=== PATIENT | female | born 1965 | race Caucasian/White ===

== ENCOUNTER → 2018-11-04 | Outpatient (CLI) | payer OTHER, MEDICAID ==
--- NOTE | ~2018-11-04 | HM ---
[place], [place] HOLTER MONITOR REPORT NAME: SOPHIA GREENE UNIT #: [id number] ROOM: DOCTOR: JOSE C HUNTER MD BIRTHDATE: [birth year] DOS: 11/12/2018 HOLTER MONITOR The patient remained in sinus rhythm throughout the entire period. Minimum heart rate is 52, maximum heart rate is 132, average of 80 beats per minute. Baseline cardiogram is sinus rhythm. The patient had an episode of sinus tachycardia, isolated PVCs, no bradycardic episodes, no pauses. FINAL IMPRESSION: Sinus rhythm with an episode of sinus tachycardia. No significant supraventricular dysrhythmia. Hemodynamically stable. No significant pauses. No significant ventricular dysrhythmia. JOSE C HUNTER MD CM:HOLTER:HOLTER MONITOR REPORT [id number] JOSE C HUNTER MD
== END | disposition home or self-care (01) ==
LOC: CARD 08:52
DX: R00.0 Tachycardia, unspecified (principal)

== ENCOUNTER → 2018-12-11 | Outpatient (CLI) | payer OTHER, MEDICAID | END | disposition home or self-care (01) | LOC: CT 12-10 14:00 | DX: K76.0 Fatty (change of) liver, not elsewhere classified (principal); R10.11 Right upper quadrant pain; Z90.710 Acquired absence of both cervix and uterus ==

== ENCOUNTER → 2018-12-19 | Outpatient (CLI) | payer OTHER, MEDICAID | END | disposition home or self-care (01) | LOC: NM 06:46 | DX: R10.84 Generalized abdominal pain (principal); K59.00 Constipation, unspecified ==

== ENCOUNTER → 2019-03-03 | Outpatient (CLI) | payer OTHER, MEDICAID ==
[2019-03-03 09:48] LABS: BUN 8 mg/dl (7-24); CREATININE 0.95 mg/dL (0.55-1.02)
== END | disposition home or self-care (01) ==
LOC: LAB 09:10
PROVIDERS: Family Medicine
DX: K76.89 Other specified diseases of liver (principal); R10.84 Generalized abdominal pain; R10.2 Pelvic and perineal pain

== ENCOUNTER → 2019-03-05 | Outpatient (CLI) | payer OTHER, MEDICAID ==
[~2019-03-05] MED LIST: BACLOFEN5 MG PO; DUEXIS 800-26.1 EACH PO; LEVOTHYROXINE175 MCG PO; LYRICA150 M1 PO; LYRICA75 M1 PO; NUCYNTA50 MG PO; OMEPRAZOLE40 MG PO
== END | disposition home or self-care (01) ==
LOC: CT 01:04
DX: K76.89 Other specified diseases of liver (principal); R10.84 Generalized abdominal pain; R10.2 Pelvic and perineal pain

== ENCOUNTER → 2019-03-21 | Day surgery (SDC) | payer OTHER, MEDICAID ==
[~2019-03-21] VITALS: Ht 167.6 cm; Wt 90.7 kg
[2019-03-21 07:27] VITALS: BP 133/73
[2019-03-21 09:05] VITALS: BP 108/61
[2019-03-21 09:18] VITALS: BP 114/76
[2019-03-21 09:30] VITALS: BP 124/76
== END | disposition home or self-care (01) ==
LOC: SDC 03-17 08:00
DX: K62.5 Hemorrhage of anus and rectum (principal); K21.0 Gastro-esophageal reflux disease with esophagitis; K44.9 Diaphragmatic hernia without obstruction or gangrene; K64.9 Unspecified hemorrhoids; Z98.890 Other specified postprocedural states; Z79.899 Other long term (current) drug therapy; Z88.8 Allergy status to other drugs, medicaments and biological substances

== ENCOUNTER → 2019-08-01 | Outpatient (CLI) | payer OTHER, MEDICAID ==
[~2019-08-01] MED LIST changes: +COLACE100 MG PO; +LYRICA200 M1 PO; +NUCYNTA100 MG PO; +ZOFRAN4 MG PO
== END | disposition home or self-care (01) ==
LOC: COVID19 01:10
DX: Z01.818 Encounter for other preprocedural examination (principal); Z11.59 Encounter for screening for other viral diseases

== ENCOUNTER → 2019-08-07 | Day surgery (SDC) | payer OTHER, MEDICAID ==
[2019-07-31 13:14] VITALS: BP 133/89
[~2019-08-07] VITALS: Ht 167.6 cm; Wt 91.6 kg
[2019-08-07 07:00] VITALS: BP 116/61
[2019-08-07 08:38] VITALS: BP 129/60
[2019-08-07 08:53] VITALS: BP 135/63
[2019-08-07 09:10] VITALS: BP 125/63
[2019-08-07 09:23] VITALS: BP 130/72
[2019-08-07 09:38] VITALS: BP 143/93
== END | disposition home or self-care (01) ==
LOC: SDC 07-31 13:15
DX: K80.10 Calculus of gallbladder with chronic cholecystitis without obstruction (principal); K21.9 Gastro-esophageal reflux disease without esophagitis; G47.30 Sleep apnea, unspecified; F17.210 Nicotine dependence, cigarettes, uncomplicated; Z98.890 Other specified postprocedural states; Z88.8 Allergy status to other drugs, medicaments and biological substances; Z79.899 Other long term (current) drug therapy

== ENCOUNTER 2019-09-04 18:46 | Emergency (ER) | payer OTHER, MEDICAID ==
[~2019-09-04] VITALS: Ht 167.6 cm; Wt 90.7 kg
[2019-09-04] MEDS ORDERED: MEDROL DOSEPAK4 MG PO (21:55)
== END 2019-09-04 21:58 | disposition home or self-care (01) ==
LOC: ED 18:46
DX: L29.8 Other pruritus (principal); T39.395A Adverse effect of other nonsteroidal anti-inflammatory drugs [NSAID], initial encounter; Z88.8 Allergy status to other drugs, medicaments and biological substances; Z91.040 Latex allergy status; Z79.899 Other long term (current) drug therapy; Y92.89 Other specified places as the place of occurrence of the external cause

== ENCOUNTER → 2020-03-01 | Outpatient (CLI) | payer OTHER, MEDICAID ==
[~2020-03-01] MED LIST changes: +MEDROL DOSEPAK4 MG PO
== END | disposition home or self-care (01) ==
LOC: COVID19 13:38
PROVIDERS: ATTEND Family Medicine
DX: U07.1 COVID-19 (principal)

== ENCOUNTER → 2020-05-31 | Outpatient (CLI) | payer OTHER, MEDICAID | END | disposition home or self-care (01) | LOC: MRI 09:52 | PROVIDERS: ATTEND Physician Assistant | DX: M50.323 Other cervical disc degeneration at C6-C7 level (principal); M50.222 Other cervical disc displacement at C5-C6 level ==

== ENCOUNTER → 2020-07-19 | Outpatient (CLI) | payer OTHER, MEDICAID ==
[2020-07-19 09:50] LABS: BUN 7 mg/dl (7-24); CHLORIDE 109 mmol/L (98-107); SODIUM 142 mmol/L (136-145)
== END | disposition home or self-care (01) ==
LOC: LAB 09:09
PROVIDERS: ATTEND Orthopaedic Surgery
DX: Z01.818 Encounter for other preprocedural examination (principal); I44.4 Left anterior fascicular block; G56.02 Carpal tunnel syndrome, left upper limb; G56.22 Lesion of ulnar nerve, left upper limb

== ENCOUNTER → 2021-02-16 | Outpatient (CLI) | payer OTHER, MEDICAID ==
[2021-02-16 09:35] LABS: BASO % 0.5 % (0.0-1.0); EOS # 0.2 10*3/uL (0.0-0.4); EOS % 2.4 % (1.0-4.0); HEMATOCRIT 47.7 % (37.0-47.0); LYMPH # 3.2 10*3/uL (1.3-4.4); LYMPH % 39.4 % (27.0-41.0); MEAN CELL VOLUME 94.6 fl (81.0-99.0); MEAN CORPUSCULAR HGB CONC 32.7 g/dl (33.0-37.0); MEAN PLATELET VOLUME 10.4 fl (9.6-12.3); MONO # 0.5 10*3/uL (0.1-1.0); MONO % 6.4 % (3.0-9.0); NEUT # 4.2 10*3/uL (2.3-7.9); NEUT % 50.7 % (47.0-73.0); PLATELET COUNT AUTOMATED 249 10*3/uL (130-400); RED BLOOD COUNT 5.04 10*6/uL (4.10-5.10); RED CELL DISTRI WIDTH 13.8 % (0-14.5); WHITE BLOOD COUNT 8.2 10*3/uL (4.8-10.8)
[2021-02-16 09:47] LABS: BILIRUBIN Negative (Negative); BLOOD Negative (Negative); CLARITY Cloudy (Clear); COLOR Dark Yellow (Yellow); GLUCOSE Negative (Negative); KETONE Trace (Negative); LEUKO ESTERASE Negative (Negative); NITRITE Negative (Negative); SPECIFIC GRAVITY 1.025 (1.001-1.030)
[2021-02-16 09:59] LABS: ALBUMIN 3.8 gm/dl (3.1-4.5); ALKALINE PHOSPHATASE 62 U/L (45-117); BUN 7 mg/dl (7-24); CHLORIDE 110 mmol/L (98-107); CHOLESTEROL 277 mg/dL (<200); CREATININE 1.04 mg/dL (0.55-1.02); GAMMA GLUTAMYL TRANSPEPTIDASE 26 U/L (5-55); IRON 79 ug/dL (50-170); LDL CHOLESTEROL 169 mg/dL (9-159); POTASSIUM 3.8 mmol/L (3.5-5.1); SGOT/AST 22 IU/L (3-35); SGPT/ALT 31 U/L (12-78); SODIUM 140 mmol/L (136-145); T3 UPTAKE 27 % (31-39); THYROXINE (T4) TOTAL 2.3 ug/dl (4.8-13.9); TOTAL IRON BINDING CAPACITY 373 ug/dl (250-450); TOTAL PROTEIN 7.5 gm/dL (6.4-8.2); TRIGLYCERIDES 324 mg/dl (<150)
[2021-02-16 10:27] LABS: FERRITIN 26.2 ng/mL (10.0-291.0)
[2021-02-16 10:45] LABS: BACTERIA 3+
== END | disposition home or self-care (01) ==
LOC: LAB 08:40
PROVIDERS: ATTEND Family Medicine
DX: M79.89 Other specified soft tissue disorders (principal); E78.5 Hyperlipidemia, unspecified; R53.83 Other fatigue; R79.89 Other specified abnormal findings of blood chemistry; R74.8 Abnormal levels of other serum enzymes; E55.9 Vitamin D deficiency, unspecified

== ENCOUNTER → 2022-05-23 | Outpatient (CLI) | payer OTHER, MEDICAID | LOC: US 02:06 | PROVIDERS: ATTEND Family Medicine | DX: I73.9 Peripheral vascular disease, unspecified (principal) ==

== ENCOUNTER → 2022-07-14 | Outpatient (CLI) | payer OTHER, MEDICAID ==
[2022-07-14 09:49] LABS: BILIRUBIN Negative (Negative); BLOOD Negative (Negative); CLARITY Clear (Clear); COLOR Yellow (Yellow); GLUCOSE Negative (Negative); KETONE Negative (Negative); LEUKO ESTERASE Negative (Negative); NITRITE Negative (Negative); PH 5.5 (4.5-8.0); UROBILINOGEN 0.2 E.U./dl (0.0-1.0)
[2022-07-14 09:52] LABS: BASO % 0.4 % (0.0-1.0); EOS # 0.2 10*3/uL (0.0-0.4); EOS % 1.9 % (1.0-4.0); HEMATOCRIT 46.6 % (37.0-47.0); LYMPH # 2.8 10*3/uL (1.3-4.4); LYMPH % 28.3 % (27.0-41.0); MEAN CELL VOLUME 92.5 fl (81.0-99.0); MEAN CORPUSCULAR HGB 30.6 pg (27.0-31.0); MEAN PLATELET VOLUME 10.2 fl (9.6-12.3); MONO # 0.7 10*3/uL (0.1-1.0); MONO % 6.7 % (3.0-9.0); NEUT # 6.2 10*3/uL (2.3-7.9); NEUT % 62.2 % (47.0-73.0); PLATELET COUNT AUTOMATED 279 10*3/uL (130-400); RED BLOOD COUNT 5.04 10*6/uL (4.10-5.10); RED CELL DISTRI WIDTH 13.2 % (0-14.5); RETICULOCYTE % 2.19 % (0.50-2.50); WHITE BLOOD COUNT 9.9 10*3/uL (4.8-10.8)
[2022-07-14 10:37] LABS: ALKALINE PHOSPHATASE 65 U/L (46-116); BUN 9 mg/dl (9-23); CHLORIDE 106 mmol/L (98-107); CHOLESTEROL 256 mg/dL (<200); GAMMA GLUTAMYL TRANSPEPTIDASE 20 U/L (0-73); LDL CHOLESTEROL 141 mg/dL (9-159); POTASSIUM 3.8 mmol/L (3.4-5.1); SGPT/ALT 21 U/L (10-49); T3 UPTAKE 18.1 % (22.4-36.7); THYROID STIM HORMONE (HS) 24.557 uIU/ml (0.550-4.780); THYROXINE (T4) TOTAL 4.1 ug/dl (4.5-10.9); TOTAL PROTEIN 7.4 gm/dL (6.0-8.0); TRIGLYCERIDES 322 mg/dl (<150)
[2022-07-14 10:41] LABS: VITAMIN D, 25-HYDROXY 25.4 ng/mL (30-100)
[2022-07-14 11:14] LABS: BACTERIA TRACE; WBC 0-2 wbc/hpf (0-5)
== END | disposition home or self-care (01) ==
LOC: LAB 09:09
PROVIDERS: ATTEND Family Medicine
DX: J43.9 Emphysema, unspecified (principal); R06.02 Shortness of breath; R79.89 Other specified abnormal findings of blood chemistry; R53.83 Other fatigue; E78.5 Hyperlipidemia, unspecified; R74.8 Abnormal levels of other serum enzymes; E55.9 Vitamin D deficiency, unspecified

== ENCOUNTER → 2022-07-26 | Outpatient (CLI) | payer OTHER, MEDICAID ==
[2022-07-26 10:48] LABS: BASO % 0.5 % (0.0-1.0); EOS # 0.2 10*3/uL (0.0-0.4); EOS % 1.9 % (1.0-4.0); HEMATOCRIT 46.5 % (37.0-47.0); LYMPH # 2.4 10*3/uL (1.3-4.4); LYMPH % 31.2 % (27.0-41.0); MEAN CELL VOLUME 94.1 fl (81.0-99.0); MEAN CORPUSCULAR HGB 30.2 pg (27.0-31.0); MEAN PLATELET VOLUME 9.5 fl (9.6-12.3); MONO # 0.5 10*3/uL (0.1-1.0); MONO % 6.2 % (3.0-9.0); NEUT # 4.6 10*3/uL (2.3-7.9); NEUT % 59.4 % (47.0-73.0); PLATELET COUNT AUTOMATED 245 10*3/uL (130-400); RED BLOOD COUNT 4.94 10*6/uL (4.10-5.10); WHITE BLOOD COUNT 7.7 10*3/uL (4.8-10.8)
[2022-07-26 10:49] LABS: BILIRUBIN Negative (Negative); BLOOD Negative (Negative); CLARITY Clear (Clear); COLOR Yellow (Yellow); GLUCOSE Negative (Negative); KETONE Negative (Negative); LEUKO ESTERASE Negative (Negative); NITRITE Negative (Negative); PH 6.5 (4.5-8.0); SPECIFIC GRAVITY <= 1.005 (1.001-1.030); UROBILINOGEN 0.2 E.U./dl (0.0-1.0)
[2022-07-26 10:59] LABS: ACT PARTIAL THROMBO TIME 32.1 SECONDS (20.0-32.1); INTERNATIONAL NORM RATIO 0.9 (2.0-3.5)
[2022-07-26 11:28] LABS: BACTERIA 2+
== END | disposition home or self-care (01) ==
LOC: LAB 10:14
PROVIDERS: ATTEND Pain Medicine Interventional Pain Medicine
DX: G89.4 Chronic pain syndrome (principal); Z79.899 Other long term (current) drug therapy

== ENCOUNTER 2025-01-05 12:04 | Emergency (ER) | payer OTHER, MEDICAID ==
[2025-01-05] MEDS ORDERED: PREDNISONE20 M1 PO (13:41)
== END 2025-01-05 13:39 | disposition home or self-care (01) ==
LOC: ED 12:04
DX: M65.4 Radial styloid tenosynovitis [de Quervain] (principal); K21.9 Gastro-esophageal reflux disease without esophagitis; Z90.710 Acquired absence of both cervix and uterus; Z88.8 Allergy status to other drugs, medicaments and biological substances

== ENCOUNTER → 2025-02-02 | Outpatient (CLI) | payer OTHER, MEDICAID ==
[~2025-02-02] MED LIST changes: +PREDNISONE20 M1 PO
== END | disposition home or self-care (01) ==
LOC: MRI 01-26 00:38
PROVIDERS: ATTEND Orthopaedic Surgery
DX: S73.101A Unspecified sprain of right hip, initial encounter (principal); M51.369 Other intervertebral disc degeneration, lumbar region without mention of lumbar back pain or lower extremity pain; M65.951 Unspecified synovitis and tenosynovitis, right thigh; X58.XXXA Exposure to other specified factors, initial encounter; Y93.89 Activity, other specified; Y92.89 Other specified places as the place of occurrence of the external cause; Y99.8 Other external cause status